=== PATIENT | male | born 1980 | race American Indian/Alaskan Native ===

== ENCOUNTER 2017-11-11 09:37 | Inpatient (IN) | payer OTHER, MEDICAID ==
--- NOTE | 2017-11-11 09:53 | C.PDOC ---
History Of Present Illness [id number] male presents to ED stating "I don't want to live, I wish I was never born." Denies any physical complaints. Time Seen by Provider: 11/11/17 09:38 Chief Complaint (Nursing): Psychiatric Evaluation History Per: Patient History/Exam Limitations: no limitations Onset/Duration Of Symptoms: Hrs Current Symptoms Are (Timing): Still Present Suicide/Self Injury Attempted (Context): None Modifying Factor(s): None Associated Symptoms: Suicidal Thoughts. denies: Suicidal Plan Involuntary Hold By: None Recent travel outside of the [place]: No Past Medical History Reviewed: Historical Data, Nursing Documentation, Vital Signs Vital Signs: Last Vital Signs Temp 98.0 F 11/11/17 09:52 Pulse 79 11/11/17 09:52 Resp 17 11/11/17 09:52 BP 113/74 11/11/17 09:52 Pulse Ox 99 11/11/17 09:57 - Medical History PMH: Bipolar Disorder, Depression, Schizophrenia - [facility] GROUP PSYCHOTHERAPY (09/24/17) INDIVIDUAL PSYCHOTHERAPY, BEHAVIORAL (09/11/17) INDIVIDUAL PSYCHOTHERAPY, SUPPORTIVE (09/24/17) Family History: States: Unknown Family Hx - Social History Hx Alcohol Use: No Hx Substance Use: No - Immunization History Hx Tetanus Toxoid Vaccination: No Hx Influenza Vaccination: Yes Hx Pneumococcal Vaccination: No Review Of Systems Constitutional: Negative for: Fever, Chills Gastrointestinal: Negative for: Nausea, Vomiting, Diarrhea Skin: Negative for: Rash Neurological: Negative for: Weakness, Numbness Psych: Positive for: Suicidal ideation Physical Exam - Physical Exam Appears: Non-toxic, No Acute Distress Skin: Normal Color, Warm, Dry, No Rash Head: Atraumatic, Normacephalic Eye(s): bilateral: Normal Inspection, PERRL, EOMI Oral Mucosa: Moist Throat: No Erythema, No Exudate Neck: Normal ROM, Supple Chest: Symmetrical, No Tenderness Cardiovascular: Rhythm Regular Respiratory: Normal Breath Sounds, No Rales, No Rhonchi, No Wheezing Gastrointestinal/Abdominal: Soft, No Tenderness Extremity: Normal ROM, No Swelling Neurological/Psych: Oriented x3, Normal Speech, Normal Cognition Gait: Steady ED Course And Treatment - Laboratory Results Result Diagrams: 11/11/17 09:53 11/11/17 09:53 O2 Sat by Pulse Oximetry: 99 (RA) Pulse Ox Interpretation: Normal Medical Decision Making Medical Decision Making: Ordered Blood work and Urinalysis. The patient is medically cleared by me for psych admission. Case was discussed with Dr. Becker who agrees to admit the patient to psych. 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 - Scribe Statement The provider has reviewed the documentation as recorded by the Scribdelia Jett All medical record entries made by the Barbaraibdelia were at my direction and personally dictated by me. I have reviewed the chart and agree that the record accurately reflects my personal performance of the history, physical exam, medical decision making, and the department course for this patient. I have also personally directed, reviewed, and agree with the discharge instructions and disposition.
[2017-11-11 10:09] LABS: BASO % 0.3 % (0.0-2.0); EOS % 0.3 % (0.0-4.0); HEMOGLOBIN 13.6 g/dL (12.0-18.0); LYMPH # 1.2 K/uL (1.0-4.3); LYMPH % 12.8 % (20.0-40.0); MEAN CELL VOLUME 77.5 fL (80.0-94.0); MEAN CORPUSCULAR HEMOGLOBIN 24.8 pg (27.0-31.0); MEAN PLATELET VOLUME 9.9 fL (7.2-11.7); MONO # 0.5 K/uL (0.0-0.8); MONO % 5.2 % (0.0-10.0); NEUT # 7.9 K/uL (1.8-7.0); NEUT % 81.4 % (50.0-75.0); RBC 5.5 Mil/uL (4.40-5.90); RED CELL DISTRIBUTION WIDTH 14.6 % (11.5-14.5); WHITE BLOOD COUNT 9.7 K/uL (4.8-10.8)
[2017-11-11 10:14] LABS: URINE AMORPHOUS SEDIMENT MODERATE /ul (<OCC); URINE BACTERIA RARE (<OCC); URINE BILIRUBIN NEGATIVE (NEGATIVE); URINE BLOOD NEGATIVE (NEGATIVE); URINE CLARITY Hazy (Clear); URINE COLOR Yellow (YELLOW); URINE GLUCOSE (UA) NORMAL (Normal); URINE LEUKOCYTE ESTERASE NEG Leu/uL (Negative); URINE PROTEIN NEGATIVE (NEGATIVE); URINE UROBILINOGEN NORMAL mg/dL (0.2-1.0)
[2017-11-11 10:18] LABS: ACETAMINOPHEN < 10.0 ug/mL (10.0-30.0); ALB/GLOB RATIO 1.1 (1.0-2.1); ALBUMIN 4.5 g/dL (3.5-5.0); ALT/SGPT 14 U/L (21-72); AST/SGOT 23 U/L (17-59); BLOOD UREA NITROGEN 11 mg/dL (9-20); CALCIUM 9.8 mg/dl (8.6-10.4); GFR AFRICAN-AMERICAN > 60; GFR NON-AFRICAN AMERICAN > 60; SALICYLATE < 1.0 mg/dL 1
[2017-11-11 10:44] LABS: BARBITURATES, UR NEGATIVE (NEGATIVE); BENZODIAZEPINES, UR NEGATIVE (NEGATIVE); OPIATES, UR NEGATIVE (NEGATIVE); PHENCYCLIDINE, UR NEGATIVE (NEGATIVE)
--- NOTE | 2017-11-11 12:13 | PCM.BM ---
<Leela Monzon - Last Filed: 11/11/17 12:12> Treatment Plan Problems - Problems identified on initial assessmt Depression Date Initiated: 11/11/17 Time Initiated: 12:12 Assessment reference: NA Status: Active Suicidal Ideation Date Initiated: 11/11/17 Time Initiated: 12:12 Assessment reference: NA Status: Active Treatment assets and liabiliti Patient Assests: cooperative, motivated, resourceful, self-reliant, ADL independent, physically healthy, negotiates basic needs, cognitively intact Patient Liabilities: live alone (Lives with family), substance abuse (None), medical problems (None), imparied memory (Wear glasses) - Milieu Protocol Maintain good personal hygiene: daily Encourage regular showers, daily Remind patient to perform daily oral care, daily Assist patient to perform ADL's (Self) Conduct patient checks and document Observation sheet: Q15 minutes (Safety) Maintain personal safety: every shift Educate patient to report safety concerns to staff, every shift Monitor environment for contraband/sharps Medication safety: Monitor for expected outcome, potential side effects: every shift, Assess barriers to learning: every shift, Assess readiness for medication education: every shift <Paty Telles - Last Filed: 11/15/17 11:21> - Diagnosis (1) Schizoaffective disorder Status: Acute Interventions: 11/15/17 11:21 * Assess/adjust medications daily and /or as needed * See patient on an individual basis 7x/week to assess status of hallucinations * Discuss risks, benefits, side effects and alternatives of medications * <Sun Zhu - Last Filed: 11/16/17 15:10> Family Contact Family involvement: Patient does not wish Family/SO involvement Family contact: Patient declines to allow family contact at present Discharge/Continuing Care - Education Needs Education Needs: Patient Medication, Patient Diagnosis/Disease Process, Patient Placement options, Patient Community resources - Discharge Discharge Criteria: Free of Suicidal thoughts, Normal sleep pattern, Ability to care for self, Reduction of target symptoms Discharge to:: Home - Treatment Team Participation Discussed with Family/SO: No Was Patient/Family/SO present at Treatment Team Meeting: Yes
--- NOTE | 2017-11-11 23:37 | PCM.PSYCH ---
Initial Psychiatric Evaluation - Initial Psychiatric Evaluation Type of Admission: Voluntary Legal Status: Capacity Chief Complaint (in patient's own words): I am depressed and I need treatment. History of Present Illness and Precipitating Events: Patient is a 37 years old, single, unemployed, on Social Security, male with history of depression for last 7 years, noncompliant with treatment for last week was admitted due to worsening of depression and suicidal ideations with some plan. Patient reported worsening depression for decreased sleep, appetite, no change in appetite and no weight change. Started having suicidal ideations with some plan. Patient had suicidal ideations this morning without any plan but feels safe in the hospital. Has 5 previous suicidal attempts. His last suicidal attempt was 2 weeks ago by drowning himself and bathroom tub and attempted to get electric shock while in the bathtub. Patient was admitted to [facility] (Formerly [facility] Patient feels hopelessness and helplessness. History of 7-8 inpatient psychiatric admissions in the past. Patient believes that someone is after him, someone is watching him and that makes him nervous. Denied any manic symptoms. Denied any substance use including heroin, cocaine, and cannabis. He has history of alcohol use in the past. Last drink was 10 years ago. Denied smoking cigarettes. Patient was born in [place] has high school graduation. Not working for last 10 years. He is on Social Security disability. Never and has no children. He lives with family. His height is 5 feet 8 inches and weight is 180 pounds. Current Medications: Active Medications Generic Name Dose Route Start Last Admin Trade Name Freq PRN Reason Stop Dose Admin Haloperidol 5 mg 11/11/17 18:30 11/11/17 19:08 Haldol PO 5 mg BID GEOVANY Administration Hydroxyzine HCl 25 mg 11/11/17 18:31 11/11/17 21:18 Atarax PO 25 mg Q6 PRN Administration Anxiety Ibuprofen 400 mg 11/11/17 18:31 Motrin Tab PO Q6 PRN Pain, moderate (4-7) [place] Carbonate 300 mg 11/12/17 10:00 [place] Carbonate 300mg PO TID GEOVANY Pneumococcal Polyvalent Vaccine 0.5 ml 11/14/17 10:00 Pneumovax 23 Vaccine IM 11/14/17 10:01 .ONCE ONE Trazodone HCl 50 mg 11/11/17 22:00 11/11/17 21:18 Desyrel PO 50 mg HS GEOVANY Administration Venlafaxine HCl 37.5 mg 11/12/17 10:00 Effexor Xr PO DAILY GEOVANY Past Psychiatric History - Past Psychiatric History Previous Treatment History: Inpatient History of Abuse: None reported History of ETOH/Drug Use: See HPI History of Family Illness: None reported Pertinent Medical Hx (Current Medical&Sleep Prob, Allergies): Allergies Allergy/AdvReac Type Severity Reaction Status Date / Time No Known Allergies Allergy Verified 11/11/17 09:51 Multivitamin [Multi-Vitamin Daily] 1 tab PO DAILY 09/11/17 Venlafaxine [Effexor] 37.5 mg PO BID 30 Days #60 tab 09/28/17 lamoTRIgine [Lamictal] 25 mg PO BID 30 Days #60 tab 09/28/17 Review of Systems - Psychiatric Psychiatric: As Per HPI, Depression, Paranoia, Suicidal Ideation Mental Status Examination - Personal Presentation Personal Presentation: Looks stated age - Affect Affect: Depressed - Motor Activity Motor Activity: Calm - Reliability in Providing Information Reliability in Providing Information: Fair - Speech Speech: Organized - Mood Mood: Depressed - Formal Thought Process Formal Thought Process: No Impairment - Hallucinations/Delusions Hallucinations: Other (None reported) Delusions: Other - Obsessions/Compulsions Obsessions: None Compulsions: None - Cognitive Functions Orientation: Person, Place, Situation, Time Sensorium: Alert Attention/Concentration: Attentive Abstract Thinking: [place] Estimate of Intelligence: Average Judgement: Intact, as evidence by: Insight regarding need for hospitalization Memory: Recent intact, as evidence by: 3/3 object recall, Remote intact, as evidenced by: Abilit to recall sig. 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 Supportive therapy. We will start lithium, Haldol and venlafaxine. Other as needed medications. Projected ELOS: 8-10 days - Smoking Cessation Smoking Cessation Initiated: No Reason for not providing: Patient does not smoke cigarette
[2017-11-12] MEDS: Venlafaxine 37.5 mg ER Cap PO SCH (09:50)
--- NOTE | 2017-11-12 15:36 | PCM.PYCHPN ---
Psychiatric Progress Note - Psychiatric Progress Note Patient seen today, length of contact: 15 minutes Patient Chief Complaint: I am feeling little better. Problems Identified/Issues Discussed: Patient seen, chart reviewed, case discussed with the staff. Issues related to illness and treatment were discussed with the patient. Reported compliant with treatment with no adverse effects. Feeling little better. Calm and cooperative. Awake alert oriented 3. Aftercare discussed with the patient. Denied any delusions, auditory or visual hallucinations, suicidal ideations or homicidal ideations at the time of evaluation. Medical Problems: None reported Diagnostic Results: Reviewed DSM 5 Symptoms Update: Some improvement with treatment. Medication Change: No Medical Record Reviewed: Yes Mental Status Examination - Cognitive Function Orientation: Person, Place, Situation, Time Memory: Intact Attention: WNL Concentration: WNL Association: WN Fund of Knowledge: [facility] Decription of patient's judgement and insights: Fair - Mood Mood: Depressed - Affect Affect: Depressed - Speech Speech: Appropriate - Formal Thought Process Formal Thought Process: No Impairment Psychotic Thoughts and Behaviors: None - Suicidal Ideation Suicidal Ideation: No - Homicidal Ideation Homicidal Ideation: No Goal/Treatment Plan - Goal/Treatment Plan Need for Continued Stay: Remain at risks for inpatient hospitalization, Discharge may exacerbated symptoms, Severe functional impairment Progress Toward Problem(s) and Goals/Treatment Plan: Patient education. Supportive therapy. Continue treatment as before. Patient will get some help from director of social media marketing for follow-up care. Estimated Date of D/C: 11/23/17 - Smoking Cessation Smoking Cessation Initiated: No Reason for not providing: Patient does not smoke cigarette
[2017-11-13] MEDS: Venlafaxine 37.5 mg ER Cap PO SCH (09:57)
--- NOTE | 2017-11-13 10:56 | PCM.PYCHPN ---
Psychiatric Progress Note - Psychiatric Progress Note Patient seen today, length of contact: 15 minutes Patient Chief Complaint: I am feeling sebastian.' Problems Identified/Issues Discussed: Patient seen and evaluated, chart reviewed and discussed with the nurse. Patient remained disorganized and internally preoccupied. Patient remained isolated, confined and withdrawn. He reports some improvement in the voices. Patient still appears paranoid and delusional. He reports depressed mood but denies any feelings of hopelessness and helplessness. He is taking medication and denies any side effects. Symptoms are improving but she needs more time for stabilization. Supportive therapy and psychoeducation were given. Medication Change: Yes Medical Record Reviewed: Yes Mental Status Examination - Cognitive Function Orientation: Person, Place, Situation, Time Memory: Intact Attention: WNL Concentration: Poor Association: Loose Fund of Knowledge: WNL - Mood Mood: Depressed, Anxious - Affect Affect: Constricted - Speech Speech: Soft - Formal Thought Process Formal Thought Process: Hallucinations, Delusions, Paranoia, Loosening of associations - Suicidal Ideation Suicidal Ideation: No - Homicidal Ideation Homicidal Ideation: No Goal/Treatment Plan - Goal/Treatment Plan Need for Continued Stay: Severe depression anxiety, Severe functional impairment Progress Toward Problem(s) and Goals/Treatment Plan: Schizoaffective Disorder -CBT -Individual and group therapy -Psychoeducation -[place] 300 mg TID -Effexor 37.5 mg daily -Haldol 5 mg by mouth twice a day -Cogentin 1 mg by mouth twice a day -Trazodone 50 mg by mouth daily at bedtime -Obtain collateral history -Disposition planning -Medicine consult - Smoking Cessation Smoking Cessation Initiated: No
[2017-11-14] MEDS: Venlafaxine 37.5 mg ER Cap PO SCH (09:37)
[2017-11-14] MEDS ORDERED: Pneumococcal 23-Valent Vaccine IM ONE (10:00)
--- NOTE | 2017-11-14 12:18 | PCM.PYCHPN ---
Psychiatric Progress Note - Psychiatric Progress Note Patient seen today, length of contact: 15 minutes Patient Chief Complaint: I am not feeling good.' Problems Identified/Issues Discussed: Patient seen and evaluated, chart reviewed and discussed with the nurse. Patient remained disorganized and internally preoccupied. Patient remained isolated, confined and withdrawn. He reports some improvement in the voices. Patient still appears paranoid and delusional. He reports depressed mood but denies any feelings of hopelessness and helplessness. He is taking medication and denies any side effects. Symptoms are improving but she needs more time for stabilization. Supportive therapy and psychoeducation were given. Medication Change: Yes Medical Record Reviewed: Yes Mental Status Examination - Cognitive Function Orientation: Person, Place, Situation, Time Memory: Intact Attention: WNL Concentration: Poor Association: Loose Fund of Knowledge: Poor - Mood Mood: Depressed, Anxious - Affect Affect: Constricted - Speech Speech: Soft - Formal Thought Process Formal Thought Process: Hallucinations, Delusions, Paranoia, Loosening of associations - Suicidal Ideation Suicidal Ideation: No - Homicidal Ideation Homicidal Ideation: No Goal/Treatment Plan - Goal/Treatment Plan Need for Continued Stay: Severe depression anxiety, Failed transitioning, Severe functional impairment Progress Toward Problem(s) and Goals/Treatment Plan: Schizoaffective Disorder -CBT -Individual and group therapy -Psychoeducation -[place] 300 mg TID -Effexor 37.5 mg daily -Haldol 5 mg by mouth twice a day -Cogentin 1 mg by mouth twice a day -Trazodone 50 mg by mouth daily at bedtime -Obtain collateral history -Disposition planning -Medicine consult
[2017-11-15] MEDS: Venlafaxine 37.5 mg ER Cap PO SCH (10:34)
[2017-11-16] MEDS: Venlafaxine 37.5 mg ER Cap PO SCH (09:10)
--- NOTE | 2017-11-16 13:47 | PCM.PYCHPN ---
Psychiatric Progress Note - Psychiatric Progress Note Patient seen today, length of contact: 15 minutes Patient Chief Complaint: I am feeling sebastian.' Problems Identified/Issues Discussed: Patient seen and evaluated, chart reviewed and discussed with the nurse. Today patient appears more organized and less internally preoccupied. He remained remained isolated, confined and withdrawn. He reports some improvement in the voices. Patient still appears paranoid and delusional. He reports depressed mood but denies any feelings of hopelessness and helplessness. He is taking medication and denies any side effects. Symptoms are improving but she needs more time for stabilization. Supportive therapy and psychoeducation were given. Medication Change: Yes Medical Record Reviewed: Yes Mental Status Examination - Cognitive Function Orientation: Person, Place, Situation, Time Memory: Intact Attention: WNL Concentration: Poor Association: Loose Fund of Knowledge: WNL - Mood Mood: Depressed, Anxious - Affect Affect: Constricted - Speech Speech: Soft - Formal Thought Process Formal Thought Process: Hallucinations, Delusions, Paranoia, Loosening of associations - Suicidal Ideation Suicidal Ideation: No - Homicidal Ideation Homicidal Ideation: No Goal/Treatment Plan - Goal/Treatment Plan Need for Continued Stay: Severe depression anxiety, Severe functional impairment Progress Toward Problem(s) and Goals/Treatment Plan: Schizoaffective Disorder -CBT -Individual and group therapy -Psychoeducation -[place] 300 mg TID -Effexor 37.5 mg daily -Haldol 10 mg by mouth twice a day -Cogentin 1 mg by mouth twice a day -Trazodone 50 mg by mouth daily at bedtime -Obtain collateral history -Disposition planning -Medicine consult
--- NOTE | 2017-11-16 13:48 | PCM.PYCHPN ---
Psychiatric Progress Note - Psychiatric Progress Note Patient seen today, length of contact: 15 minutes Patient Chief Complaint: I am feeling sebastian.' Problems Identified/Issues Discussed: Patient seen and evaluated, chart reviewed and discussed with the nurse. Today patient appears more organized and less internally preoccupied. He remained remained isolated, confined and withdrawn. He reports some improvement in the voices. Patient still appears paranoid and delusional. He reports depressed mood but denies any feelings of hopelessness and helplessness. He is taking medication and denies any side effects. Symptoms are improving but she needs more time for stabilization. Supportive therapy and psychoeducation were given. Medication Change: Yes (Increase Effexor) Medical Record Reviewed: Yes Mental Status Examination - Cognitive Function Orientation: Person, Place, Situation, Time Memory: Intact Attention: WNL Concentration: Poor Association: Loose Fund of Knowledge: WNL - Mood Mood: Depressed, Anxious - Affect Affect: Constricted - Speech Speech: Soft - Formal Thought Process Formal Thought Process: Hallucinations, Delusions, Paranoia, Loosening of associations - Suicidal Ideation Suicidal Ideation: No - Homicidal Ideation Homicidal Ideation: No Goal/Treatment Plan - Goal/Treatment Plan Need for Continued Stay: Severe depression anxiety, Severe functional impairment Progress Toward Problem(s) and Goals/Treatment Plan: Schizoaffective Disorder -CBT -Individual and group therapy -Psychoeducation -[place] 300 mg TID -Effexor 37.5 mg daily -Haldol 10 mg by mouth twice a day -Cogentin 1 mg by mouth twice a day -Trazodone 50 mg by mouth daily at bedtime -Obtain collateral history -Disposition planning -Medicine consult
[2017-11-16 18:11] LABS: FREE T4 0.93 ng/dL (0.78-2.19)
[2017-11-17] MEDS: Venlafaxine 150 mg ER Cap PO SCH (09:43)
[2017-11-18 06:29] VITALS: O2SAT 98
[2017-11-18] MEDS: Venlafaxine 150 mg ER Cap PO SCH (10:25)
--- NOTE | 2017-11-18 13:19 | PCM.PYCHPN ---
Psychiatric Progress Note - Psychiatric Progress Note Patient seen today, length of contact: 16 min Patient Chief Complaint: "Better" Problems Identified/Issues Discussed: The pt is seen, chart reviewed, case discussed with staff. The pt is compliant with medications and reports no side-effects. Symptoms are improving but needs more time to stabilize. After care discussed, support and psychoeducation given. He has exophthalmus but TFts are WNL Medication Change: No Medical Record Reviewed: Yes Mental Status Examination - Cognitive Function Orientation: Person, Place, Situation, Time Memory: Intact Attention: WNL Concentration: Poor Association: Loose Fund of Knowledge: WNL - Mood Mood: Depressed, Anxious - Affect Affect: Constricted - Speech Speech: Soft - Formal Thought Process Formal Thought Process: Delusions, Paranoia - Suicidal Ideation Suicidal Ideation: No - Homicidal Ideation Homicidal Ideation: No Goal/Treatment Plan - Goal/Treatment Plan Need for Continued Stay: Severe depression anxiety, Discharge may exacerbated symptoms, Severe functional impairment Progress Toward Problem(s) and Goals/Treatment Plan: Continue medications Support and psychoeducation daily Attend groups and activities daily After care planning by SACHA
[2017-11-19] MEDS: Venlafaxine 150 mg ER Cap PO SCH (10:24)
--- NOTE | 2017-11-20 10:02 | PCM.PYCHPN ---
Psychiatric Progress Note - Psychiatric Progress Note Patient seen today, length of contact: 15 minutes Patient Chief Complaint: I am feeling sebastian.' Problems Identified/Issues Discussed: Patient seen and evaluated, chart reviewed and discussed with the nurse. Today patient appears more organized and less internally preoccupied. He remained remained isolated, confined and withdrawn. He reports some improvement in the voices. Patient still appears paranoid and delusional. He reports depressed mood but denies any feelings of hopelessness and helplessness. He is taking medication and denies any side effects. Symptoms are improving but she needs more time for stabilization. Supportive therapy and psychoeducation were given. Medication Change: No Medical Record Reviewed: Yes Mental Status Examination - Cognitive Function Orientation: Person, Place, Situation, Time Memory: Intact Attention: WNL Concentration: WNL Association: WNL Fund of Knowledge: WNL - Mood Mood: Depressed - Affect Affect: Depressed - Speech Speech: Appropriate - Formal Thought Process Formal Thought Process: No Impairment - Suicidal Ideation Suicidal Ideation: No - Homicidal Ideation Homicidal Ideation: No Goal/Treatment Plan - Goal/Treatment Plan Need for Continued Stay: Remain at risks for inpatient hospitalization, Discharge may exacerbated symptoms, Severe functional impairment Progress Toward Problem(s) and Goals/Treatment Plan: Schizoaffective Disorder -CBT -Individual and group therapy -Psychoeducation -[place] 300 mg TID -Effexor 37.5 mg daily -Haldol 10 mg by mouth twice a day -Cogentin 1 mg by mouth twice a day -Trazodone 50 mg by mouth daily at bedtime -Obtain collateral history -Disposition planning -Medicine consult Estimated Date of D/C: 11/23/17
[2017-11-20] MEDS: Venlafaxine 150 mg ER Cap PO SCH (10:12)
--- NOTE | 2017-11-20 13:27 | PCM.PYCHPN ---
Psychiatric Progress Note - Psychiatric Progress Note Patient seen today, length of contact: 16 min Patient Chief Complaint: "Better" Problems Identified/Issues Discussed: The pt is seen, chart reviewed, case discussed with staff. Support given, psychoed used No new symptoms reported, improving slowly and needs more time No SEs from medications, risks discussed. After care discussed Medication Change: No Medical Record Reviewed: Yes Mental Status Examination - Cognitive Function Orientation: Person, Place, Situation, Time Memory: Intact Attention: WNL Concentration: Poor Association: Loose Fund of Knowledge: WNL - Mood Mood: Depressed, Anxious - Affect Affect: Constricted - Speech Speech: Soft - Formal Thought Process Formal Thought Process: Delusions, Paranoia - Suicidal Ideation Suicidal Ideation: No - Homicidal Ideation Homicidal Ideation: No Goal/Treatment Plan - Goal/Treatment Plan Need for Continued Stay: Severe depression anxiety, Discharge may exacerbated symptoms, Severe functional impairment Progress Toward Problem(s) and Goals/Treatment Plan: Continue medications Support and psychoeducation daily Attend groups and activities daily After care planning by SACHA Estimated Date of D/C: 11/23/17
[2017-11-21] MEDS: Venlafaxine 150 mg ER Cap PO SCH (10:01)
--- NOTE | 2017-11-21 10:35 | PCM.PYCHPN ---
Psychiatric Progress Note - Psychiatric Progress Note Patient seen today, length of contact: 16 min Patient Chief Complaint: I am feeling sebastian.' Problems Identified/Issues Discussed: Patient seen and evaluated, chart reviewed and discussed with the nurse. Today patient appears more organized and less internally preoccupied. He remained remained isolated, confined and withdrawn. He reports some improvement in the voices. Patient still appears paranoid and delusional. He reports depressed mood but denies any feelings of hopelessness and helplessness. He is taking medication and denies any side effects. Symptoms are improving but she needs more time for stabilization. Supportive therapy and psychoeducation were given. Medication Change: No Medical Record Reviewed: Yes Mental Status Examination - Cognitive Function Orientation: Person, Place, Situation, Time Memory: Intact Attention: WNL Concentration: Poor Association: Loose Fund of Knowledge: WNL - Mood Mood: Depressed, Anxious - Affect Affect: Constricted - Speech Speech: Soft - Formal Thought Process Formal Thought Process: Delusions, Paranoia - Suicidal Ideation Suicidal Ideation: No - Homicidal Ideation Homicidal Ideation: No Goal/Treatment Plan - Goal/Treatment Plan Need for Continued Stay: Severe depression anxiety, Discharge may exacerbated symptoms, Severe functional impairment Progress Toward Problem(s) and Goals/Treatment Plan: Schizoaffective Disorder -CBT -Individual and group therapy -Psychoeducation -[place] 300 mg TID -Effexor 37.5 mg daily -Haldol 10 mg by mouth twice a day -Cogentin 1 mg by mouth twice a day -Trazodone 50 mg by mouth daily at bedtime -Obtain collateral history -Disposition planning -Medicine consult Estimated Date of D/C: 11/23/17
[2017-11-22] MEDS: Venlafaxine 150 mg ER Cap PO SCH (10:14)
--- NOTE | 2017-11-22 14:50 | PCM.BM ---
<Sun Zhu - Last Filed: 11/22/17 14:49> Treatment Plan Problems - Problems identified on initial assessmt Depression Date Initiated: 11/11/17 Time Initiated: 12:12 Assessment reference: NA Status: Active Suicidal Ideation Date Initiated: 11/11/17 Time Initiated: 12:12 Assessment reference: NA Status: Active Treatment assets and liabiliti Patient Assests: cooperative, motivated, resourceful, self-reliant, ADL independent, physically healthy, negotiates basic needs, cognitively intact Patient Liabilities: live alone (Lives with family), substance abuse (None), medical problems (None), imparied memory (Wear glasses) - Milieu Protocol Maintain good personal hygiene: daily Encourage regular showers, daily Remind patient to perform daily oral care, daily Assist patient to perform ADL's (Self) Conduct patient checks and document Observation sheet: Q15 minutes (Safety) Maintain personal safety: every shift Educate patient to report safety concerns to staff, every shift Monitor environment for contraband/sharps Medication safety: Monitor for expected outcome, potential side effects: every shift, Assess barriers to learning: every shift, Assess readiness for medication education: every shift Milieu Narrative: Schizoaffective Disorder -CBT -Individual and group therapy -Psychoeducation -[place] 300 mg TID -Effexor 37.5 mg daily -Haldol 10 mg by mouth twice a day -Cogentin 1 mg by mouth twice a day -Trazodone 50 mg by mouth daily at bedtime -Obtain collateral history -Disposition planning -Medicine consult Family Contact Family involvement: Patient does not wish Family/SO involvement Family contact: Patient declines to allow family contact at present Discharge/Continuing Care - Education Needs Education Needs: Patient Medication, Patient Diagnosis/Disease Process, Patient Placement options, Patient Community resources - Discharge Discharge Criteria: Free of Suicidal thoughts, Normal sleep pattern, Ability to care for self, Reduction of target symptoms Discharge to:: Home - Treatment Team Participation Patient/Family/SO Statement: Schizoaffective Disorder -CBT -Individual and group therapy -Psychoeducation -[place] 300 mg TID -Effexor 37.5 mg daily -Haldol 10 mg by mouth twice a day -Cogentin 1 mg by mouth twice a day -Trazodone 50 mg by mouth daily at bedtime -Obtain collateral history -Disposition planning -Medicine consult Discussed with Family/SO: No Was Patient/Family/SO present at Treatment Team Meeting: Yes Treatment Plan Review - Problem Depression Time Initiated: 12:12 Suicidal Ideation Time Initiated: 12:12 - Discharge / Continuing Care Discharge to:: Home Behavioral Health Services: Intensive Outpatient Health Needs: Follow up care/test, Medications/Rx <Paty Telles - Last Filed: 11/23/17 10:10> - Diagnosis (1) Schizoaffective disorder Status: Acute Interventions: 11/23/17 10:10 * Assess/adjust medications daily and /or as needed * See patient on an individual basis 7x/week to assess status of hallucinations * Discuss risks, benefits, side effects and alternatives of medications *
[2017-11-23 06:28] VITALS: BP 92/63; PULSE 80; RESP 20; TEMP 98.4
--- NOTE | 2017-11-23 09:52 | PCM.PYCHPN ---
Psychiatric Progress Note - Psychiatric Progress Note Patient seen today, length of contact: 16 min Patient Chief Complaint: I am feeling sebastian.' Problems Identified/Issues Discussed: Patient seen and evaluated, chart reviewed and discussed with the nurse. Today patient appears more organized and he denies any voices or having hallucinations. Reports improvement in his mood and reports improvement in the withdrawal symptoms. l He is taking medication and denies any side effects. Symptoms are improving but she needs more time for stabilization. Supportive therapy and psychoeducation were given. Medication Change: No Medical Record Reviewed: Yes Mental Status Examination - Cognitive Function Orientation: Person, Place, Situation, Time Memory: Intact Attention: WNL Concentration: WNL Association: WNL Fund of Knowledge: WNL - Mood Mood: Depressed, Anxious - Affect Affect: Constricted - Speech Speech: Soft - Formal Thought Process Formal Thought Process: No Impairment - Suicidal Ideation Suicidal Ideation: No - Homicidal Ideation Homicidal Ideation: No Goal/Treatment Plan - Goal/Treatment Plan Need for Continued Stay: Severe depression anxiety, Discharge may exacerbated symptoms, Severe functional impairment Progress Toward Problem(s) and Goals/Treatment Plan: Schizoaffective Disorder -CBT -Individual and group therapy -Psychoeducation -[place] 300 mg TID -Effexor 37.5 mg daily -Haldol 10 mg by mouth twice a day -Cogentin 1 mg by mouth twice a day -Trazodone 50 mg by mouth daily at bedtime -Obtain collateral history -Disposition planning -Medicine consult Estimated Date of D/C: 11/23/17 - Smoking Cessation Smoking Cessation Initiated: No
--- NOTE | 2017-11-23 09:55 | PCM.PYCHDC ---
Mental Status Examination - Mental Status Examination Orientation: Person, Place, Situation, Time Memory: Intact Mood: Neutral Affect: Constricted Speech: Soft Attention: WNL Concentration: WNL Association: WNL Fund of Knowledge: WNL Formal Thought Process: No Impairment Description of patient's judgement and insight: good, fair Psychotic Thoughts and Behaviors: Denies any AVH Suicidal Ideation: No Current Homicidal Ideation?: No Discharge Summary - Discharge Note Reason for Hospitalization: Patient is a 37 years old, single, unemployed, on Social Security, male with history of depression for last 7 years, noncompliant with treatment for last week was admitted due to worsening of depression and suicidal ideations with some plan. Patient reported worsening depression for decreased sleep, appetite, no change in appetite and no weight change. Started having suicidal ideations with some plan. Patient had suicidal ideations this morning without any plan but feels safe in the hospital. Has 5 previous suicidal attempts. His last suicidal attempt was 2 weeks ago by drowning himself and bathroom tub and attempted to get electric shock while in the bathtub. Patient was admitted to [facility]. Patient feels hopelessness and helplessness. History of 7-8 inpatient psychiatric admissions in the past. Patient believes that someone is after him, someone is watching him and that makes him nervous. Denied any manic symptoms. Denied any substance use including heroin, cocaine, and cannabis. He has history of alcohol use in the past. Last drink was 10 years ago. Denied smoking cigarettes. Patient was born in [place] has high school graduation. Not working for last 10 years. He is on Social Security disability. Never and has no children. He lives with family. His height is 5 feet 8 inches and weight is 180 pounds. Consultations:: List each consultation separately and include: 1. Reason for request. 2. Findings. 3. Follow-up Summary of Hospital Course include:: 1. Description of specific treatment plan utilized for patients during their course of treatmen. 2. Summarize the time- course for resolution of acute symptoms and/or regressed behaviors. 3. Describe issues identified and worked on during hospitalization. 4. Describe medication utilized. 5. Describe medical problems identified and treated. 6. Reassessment of suicide risk Summary of Hospital Course: During the course of his stay, patient (pt) started progressively improving and he no longer remained irritable, depressed, and suicidal. His mood was improved and he started attending groups and meetings and started socializing. Patient denied any feelings of hopelessness, helplessness, and worthlessness, denied any problem with the sleep or appetite, denied suicidal ideation or homicidal ideation. Pt denied any auditory or visual hallucinations. Some changes were made in his current medications and patient was discharged on following medications. He tolerated these medications very well and denied any side effects. CBT and SD were used. Patient was discharged to the [facility]. - Diagnosis (1) Schizoaffective disorder Status: Acute - Final Diagnosis (DSM 5) Condition upon Discharge: GOOD DSM 5: Schizoaffective Disorder Disposition: HOME/ ROUTINE Follow-up Treatment Plan: Education: Pt was educated and counseled about the risks and benefits of taking and not taking medications. Pt was educated and counseled about the risks of drinking and abusing drugs. Pt was educated and counseled to go to the ER or call 911 if pt develop suicidal ideation or homicidal ideation, worsening of symptoms or severe side effects of the meds. Prescriptions/Medication Reconciliation: Benztropine [Cogentin] 1 mg PO BID #60 tab Haloperidol [Haldol] 10 mg PO BID #60 tab [place] Two Carbonate [[place] Two Carbonate 300MG] 300 mg PO TID #90 cap traZODone [Desyrel] 50 mg PO HS PRN #30 tab PRN Reason: Insomnia Venlafaxine [Effexor XR] 150 mg PO DAILY #30 cer - Smoking Cessation Smoking Cessation Medication prescribed: No - Antipsychotic Medications Pt discharged on 2 or more routine antipsychotic medications: No
[2017-11-23] MEDS: Venlafaxine 150 mg ER Cap PO SCH (10:57)
== END 2017-11-23 11:40 | disposition home or self-care (01) | DRG 885 ==
LOC: C.ER 09:37 → C.5E 11:13
PROC: GZHZZZZ Group Psychotherapy (ICD-10-PCS; principal; 2017-11-11)
DX: F33.3 Major depressive disorder, recurrent, severe with psychotic symptoms (principal); R45.851 Suicidal ideations; H05.20 Unspecified exophthalmos; Z91.19 Patient's noncompliance with other medical treatment and regimen

== ENCOUNTER 2018-05-15 14:31 | Inpatient (IN) | payer OTHER ==
[2018-05-15 14:31] VITALS: BMI 25.8
[2018-05-15 15:55] LABS: BASO % 0.3 % (0.0-2.0); EOS # 0.3 K/uL (0.0-0.7); EOS % 3.5 % (0.0-4.0); HEMOGLOBIN 13.9 g/dL (12.0-18.0); LYMPH # 1.9 K/uL (1.0-4.3); LYMPH % 20.3 % (20.0-40.0); MEAN CELL VOLUME 78.5 fL (80.0-94.0); MEAN CORPUSCULAR HEMOGLOBIN 25.4 pg (27.0-31.0); MEAN CORPUSCULAR HGB CONC 32.4 g/dL (33.0-37.0); MEAN PLATELET VOLUME 10.6 fL (7.2-11.7); MONO # 0.9 K/uL (0.0-0.8); MONO % 10.2 % (0.0-10.0); NEUT % 65.7 % (50.0-75.0); RBC 5.47 Mil/uL (4.40-5.90); RED CELL DISTRIBUTION WIDTH 14.7 % (11.5-14.5); WHITE BLOOD COUNT 9.1 K/uL (4.8-10.8)
[2018-05-15 15:57] LABS: URINE BILIRUBIN NEGATIVE (NEGATIVE); URINE BLOOD NEGATIVE (NEGATIVE); URINE CLARITY Clear (Clear); URINE COLOR Straw (YELLOW); URINE GLUCOSE (UA) NORMAL (Normal); URINE LEUKOCYTE ESTERASE NEG Leu/uL (Negative); URINE PROTEIN NEGATIVE (NEGATIVE); URINE UROBILINOGEN NORMAL mg/dL (0.2-1.0)
[2018-05-15 16:13] LABS: ALB/GLOB RATIO 1.3 (1.0-2.1); ALBUMIN 4.3 g/dL (3.5-5.0); ALT/SGPT 11 U/L (21-72); AST/SGOT 18 U/L (17-59); BLOOD UREA NITROGEN 8 mg/dL (9-20); CALCIUM 9.4 mg/dl (8.6-10.4); GFR NON-AFRICAN AMERICAN > 60
[2018-05-15 16:18] LABS: BARBITURATES, UR NEGATIVE (NEGATIVE); BENZODIAZEPINES, UR NEGATIVE (NEGATIVE); OPIATES, UR NEGATIVE (NEGATIVE); PHENCYCLIDINE, UR NEGATIVE (NEGATIVE)
--- NOTE | 2018-05-15 17:15 | C.PDOC ---
History Of Present Illness 37-year-old male, PMHx includes depression, presents to the emergency department with complaints of feeling suicidal. Patient states he was seen at [facility] yesterday, and was told to follow up in a few days, but he became progressively suicidal. Patient has a plan to cut himself with a knife. Denies HI Time Seen by Provider: 05/15/18 14:42 Chief Complaint (Nursing): Psychiatric Evaluation History Per: Patient History/Exam Limitations: no limitations Past Medical History Reviewed: Historical Data, Nursing Documentation, Vital Signs Vital Signs: Last Vital Signs Temp 99 F 05/15/18 14:34 Pulse 99 H 05/15/18 14:34 Resp 18 05/15/18 14:34 BP 120/69 05/15/18 14:34 Pulse Ox 97 05/15/18 14:34 - Medical History PMH: Anxiety, Bipolar Disorder, Depression, Schizophrenia Denies: Diabetes, Hepatitis, HIV, HTN, Chronic Kidney Disease, Seizures, Sexually Transmitted Disease - [employer] Procedures GROUP PSYCHOTHERAPY (05/07/18) INDIVIDUAL PSYCHOTHERAPY, BEHAVIORAL (09/11/17) INDIVIDUAL PSYCHOTHERAPY, COGNITIVE-BEHAVIORAL (05/07/18) INDIVIDUAL PSYCHOTHERAPY, SUPPORTIVE (05/07/18) Family History: States: No Known Family Hx - Social History Hx Alcohol Use: No Hx Substance Use: No - Immunization History Hx Tetanus Toxoid Vaccination: No Hx Influenza Vaccination: Yes Hx Pneumococcal Vaccination: No Review Of Systems Psych: Positive for: Suicidal ideation. Negative for: Psychosis Physical Exam - Physical Exam Appears: Non-toxic, No Acute Distress Skin: Warm, Dry, No Rash Head: Atraumatic Eye(s): bilateral: Normal Inspection Nose: Normal Oral Mucosa: Moist Lips: Normal Appearing Neck: Normal ROM Cardiovascular: Rhythm Regular, No Murmur Respiratory: Normal Breath Sounds, No Accessory Muscle Use Gastrointestinal/Abdominal: Soft, No Tenderness Back: Normal Inspection Extremity: Normal ROM, No Deformity Neurological/Psych: Oriented x3, Normal Speech ED Course And Treatment - Laboratory Results Result Diagrams: 05/15/18 15:50 05/15/18 15:50 O2 Sat by Pulse Oximetry: 97 Pulse Ox Interpretation: Normal (RA) Progress Note: Patient is medically cleared, he was evaluated by Crisis and is accepted to psyciatry floor by . Disposition - Disposition Disposition: HOSPITALIZED Disposition Time: 17:40 Condition: STABLE Forms: [facility] (Korean) - Clinical Impression Clinical Impression: Suicidal ideation, Depression - Scribe Statement The provider has reviewed the documentation as recorded by the Scribe (Virgilio gong) All medical record entries made by the Scribe were at my direction and personally dictated by me. I have reviewed the chart and agree that the record accurately reflects my personal performance of the history, physical exam, m edical decision making, and the department course for this patient. I have also personally directed, reviewed, and agree with the discharge instructions and disposition. Decision To Admit - Pt Status Changed To: Hospital Disposition Of: Inpatient - Admit Certification Admit to Inpatient:: After my assessment, the patient will require hospitalization for at least two midnights. This is because of the severity of symptoms shown, intensity of services needed, and/or the medical risk in this patient being treated as an outpatient. - InPatient: Physician Admission Certification: I certify that this patient requires 2 or more midnights of care for the following reason:: needs more than 2 days of hospitalization - . Bed Request Type: Psychiatry Admitting Physician: Paty Telles Patient Diagnosis: Suicidal ideation, Depression
--- NOTE | 2018-05-15 21:50 | PCM.BM ---
<Curtis Carroll - Last Filed: 05/15/18 21:48> Treatment Plan Problems - Problems identified on initial assessmt Depression Date Initiated: 05/15/18 Time Initiated: 18:35 Assessment reference: NA Status: Active Suicidal Ideation Date Initiated: 05/15/18 Time Initiated: 18:35 Assessment reference: NA Status: Monitor Treatment assets and liabiliti Patient Assests: adapts well, cooperative, motivated, ADL independent, physically healthy, good support system, negotiates basic needs, cognitively intact, good interpersonal skills Patient Liabilities: poor support system - Milieu Protocol Maintain good personal hygiene: daily Encourage regular showers, daily Remind patient to perform daily oral care, every shift Assist patient to perform ADL's Conduct patient checks and document Observation sheet: Q15 minutes Maintain personal safety: every shift Educate patient to report safety concerns to staff, every shift Monitor environment for contraband/sharps Medication safety: Monitor for expected outcome, potential side effects: every shift, Assess barriers to learning: every shift, Assess readiness for medication education: every shift <Paty Telles - Last Filed: 05/16/18 11:00> - Diagnosis (1) Schizoaffective disorder Status: Acute Interventions: 05/16/18 11:00 * Assess/adjust medications daily and /or as needed * See patient on an individual basis 7x/week to assess status of hallucinations * Discuss risks, benefits, side effects and alternatives of medications * <Sun Zhu - Last Filed: 05/16/18 13:13> Family Contact Family involvement: Family/SO is involved Family contact: Family contacted unit to give information - Goals for Treatment Patient goals for treatment: "I do not know where I want to go for treatment." Discharge/Continuing Care - Education Needs Education Needs: Patient Medication, Patient Diagnosis/Disease Process, Patient Coping Skills, Patient Placement options, Patient Community resources - Discharge Discharge Criteria: Free of Suicidal thoughts, Normal sleep pattern, Ability to care for self, Reduction of target symptoms Discharge to:: Home, With Family - Treatment Team Participation Discussed with Family/SO: No Was Patient/Family/SO present at Treatment Team Meeting: Yes
--- NOTE | 2018-05-16 11:19 | PCM.PSYCH ---
Initial Psychiatric Evaluation - Initial Psychiatric Evaluation Type of Admission: Voluntary Legal Status: Capacity Chief Complaint (in patient's own words): I was feeling increasingly irritable and suicidal. History of Present Illness and Precipitating Events: Pt is a 37 year old male who is single and without children, on SSD and was formerly in the [place] until 2001, who lives with his parents and brother in [place], presented to the [facility] with depressed mood and suicidal ideations and homicidal ideations. Pt states he was feeling suicidal and wanted to use a gun but was not able to get access to one. He states he is suicidal because he has no car, no girlfriend, or no job. He attempted suicide 5-10 times in the past by overdosing on psychotropic medications and pain killers. He has had 10 hospitalizations for a psychiatric condition in the past. He was admitted to the psychiatric floor of [facility] once before. Pt has poor appetite and sleep. He reports racing thoughts, poor focus and poor concentration while reading or in day to day activities. He is feeling guilty about his fight with his father. He is a little hopeless, helpless and unmotivated. He denies use of cigarettes, alcohol, or other substances including heroin or cocaine. His plan after his stay in this hospital is to see a therapist or be sent to the [facility] in [place]. He denies any auditory or visual hallucinations or any psychotic symptoms. However he appeared somewhat paranoid and delusional. Past medical history: Denies Allergies: Denies Surgical history: Denies Legal history: Court date soon for fight with father Psychiatric history: General anxiety d/o, depressive d/o unspecified Family psychiatric history: Denies Current Medications: Active Medications Generic Name Dose Route Start Last Admin Trade Name Freq PRN Reason Stop Dose Admin Aripiprazole 10 mg 05/16/18 10:00 05/16/18 09:25 Abilify PO 10 mg DAILY GEOVANY Administration Diphenhydramine HCl 25 mg 05/15/18 21:08 Benadryl PO Q6 PRN Anxiety Influenza Virus Vaccine 60 mcg 05/19/18 10:00 Fluzone Quad [id number] IM 05/19/18 10:01 .ONCE ONE Pneumococcal Polyvalent Vaccine 0.5 ml 05/17/18 10:00 Pneumovax 23 Vaccine IM 05/17/18 10:01 .ONCE ONE Trazodone HCl 50 mg 05/15/18 22:00 05/15/18 21:28 Desyrel PO 50 mg HS GEOVANY Administration Past Psychiatric History - Past Psychiatric History Previous Treatment History: Inpatient Pertinent Medical Hx (Current Medical&Sleep Prob, Allergies): Allergies Allergy/AdvReac Type Severity Reaction Status Date / Time No Known Allergies Allergy Verified 04/24/18 23:28 ARIPiprazole [Abilify] 20 mg PO DAILY 30 Days #60 tab 05/03/18 Divalproex [Depakote ER(ONCE DAILY)] 1,000 mg PO HS 30 Days #60 ter 05/03/18 Review of Systems - Review of Systems All systems: reviewed and no additional remarkable complaints except - Psychiatric Psychiatric: Anxiety, Homicidal Ideation, Irritability, Mood Swings, Paranoia, Suicidal Ideation Mental Status Examination - Personal Presentation Personal Presentation: Looks stated age - Affect Affect: Broad - Motor Activity Motor Activity: Psychomotor Agitation - Reliability in Providing Information Reliability in Providing Information: Poor, due to alteration in thoughts, Poor, due to altered mood - Speech Speech: Organized - Mood Mood: Depressed, Anxious - Formal Thought Process Formal Thought Process: Delusions, Paranoia - Obsessions/Compulsions Obsessions: No Compulsions: No - Cognitive Functions Orientation: Person, Place, Situation, Time Sensorium: Alert Attention/Concentration: Attentive Abstract Thinking: [place] Estimate of Intelligence: Below average Judgement: Imparied, as evidence by: Poor judgement, Imparied, as evidence by: Lack of insight into illness - Risk Risk: Suicidal, Homicidal, Diminished functioning - Strength & Assets Inventory Strength & Assets Inventory: Family support DSM 5 DX - DSM 5 DSM 5 Diagnosis: Schizoaffective disorder bipolar type - Recommended/Plan of Treatment Treatment Recommendations and Plan of Treatment: Schizoaffective disorder bipolar type CBT Psychoeducation Supportive therapy, group therapy, individual therapy Trazodone 100 mg by mouth daily at bedtime Hydroxyzine 25 mg by mouth every 6 hours when necessary Ativan 1 mg po q6hr prn Abilify 10 mg PO QHS Depakote 250 mg PO BID - Smoking Cessation Smoking Cessation Initiated: Yes
[2018-05-16] MEDS: Divalproex 250 mg DR Tab PO SCH (18:46)
[2018-05-17] MEDS: Divalproex 250 mg DR Tab PO SCH ×2 (09:49→18:11)
[2018-05-17] MEDS ORDERED: Pneumococcal 23-Valent Vaccine IM ONE (10:00)
--- NOTE | 2018-05-17 22:25 | PCM.PYCHPN ---
Psychiatric Progress Note - Psychiatric Progress Note Patient seen today, length of contact: 15 min Patient Chief Complaint: I was feeling increasingly irritable and depressed.' Problems Identified/Issues Discussed: Patient seen and evaluated, chart reviewed and discussed with the nurse. Pt reports depressed mood, and reports feelings of hopelessness and helplessness. Pt remained disorganized and internally preoccupied. He remained isolated and withdrawn, and confined to his room. He denies any auditory hallucinations, visual hallucinations, or any paranoia. Patient is compliant with medications and denies any side effects. Symptoms are improving but pt needs more time to stabilize. Support and psychoeducation given. Medication Change: Yes Medical Record Reviewed: Yes Mental Status Examination - Cognitive Function Orientation: Person, Place, Situation, Time Memory: Intact Attention: WNL Concentration: Poor Association: Loose Fund of Knowledge: Poor - Mood Mood: Depressed, Anxious - Affect Affect: Broad - Speech Speech: Soft - Formal Thought Process Formal Thought Process: Delusions, Paranoia, Loosening of associations - Suicidal Ideation Suicidal Ideation: No - Homicidal Ideation Homicidal Ideation: Yes Goal/Treatment Plan - Goal/Treatment Plan Need for Continued Stay: Severe depression anxiety, Severe functional impairment Progress Toward Problem(s) and Goals/Treatment Plan: Schizoaffective disorder bipolar type CBT Psychoeducation Supportive therapy, group therapy, individual therapy Trazodone 100 mg by mouth daily at bedtime Hydroxyzine 25 mg by mouth every 6 hours when necessary Ativan 1 mg po q6hr prn Abilify 10 mg PO QHS Depakote 250 mg PO BID - Smoking Cessation Smoking Cessation Initiated: No
[2018-05-18] MEDS: Divalproex 500 mg DR Tab PO SCH ×2 (09:28→17:17)
[2018-05-19] MEDS ORDERED: Influenza Vaccine 60 MCG/0.5 ML SYR (3 yr & up) IM ONE (10:00)
[2018-05-19] MEDS: Divalproex 500 mg DR Tab PO SCH ×2 (10:06→17:11)
[2018-05-20 07:27] VITALS: O2SAT 96
[2018-05-20] MEDS: Divalproex 500 mg DR Tab PO SCH ×2 (09:49→16:59)
[2018-05-21] MEDS: Divalproex 500 mg DR Tab PO SCH ×2 (09:11→17:19)
--- NOTE | 2018-05-21 11:59 | PCM.PYCHPN ---
Psychiatric Progress Note - Psychiatric Progress Note Patient seen today, length of contact: 15 min Patient Chief Complaint: I m feeling little better.' Problems Identified/Issues Discussed: Patient seen and evaluated, chart reviewed and discussed with the nurse. Pt reports some improvement in his mood, irritability and agitation. Pt appears more organized than before but remained internally preoccupied. He remained isolated and withdrawn, and confined to his room. He denies any auditory hallucinations, or visual hallucinations, but still appears paranoid and delusional. Patient is compliant with medications and denies any side effects. Symptoms are improving but pt needs more time to stabilize. Support and psychoeducation given. Medication Change: Yes Medical Record Reviewed: Yes Mental Status Examination - Cognitive Function Orientation: Person, Place, Situation, Time Memory: Intact Attention: WNL Concentration: Poor Association: Loose Fund of Knowledge: Poor - Mood Mood: Depressed, Anxious - Affect Affect: Broad - Speech Speech: Soft - Formal Thought Process Formal Thought Process: Delusions, Paranoia, Loosening of associations - Suicidal Ideation Suicidal Ideation: No - Homicidal Ideation Homicidal Ideation: No Goal/Treatment Plan - Goal/Treatment Plan Need for Continued Stay: Severe depression anxiety, Severe functional impairment Progress Toward Problem(s) and Goals/Treatment Plan: Schizoaffective disorder bipolar type CBT Psychoeducation Supportive therapy, group therapy, individual therapy Trazodone 100 mg by mouth daily at bedtime Hydroxyzine 25 mg by mouth every 6 hours when necessary Ativan 1 mg po q6hr prn Abilify 10 mg PO QHS Depakote 500 mg PO BID Seroquel 100 mg PO QHS
[2018-05-22] MEDS: Divalproex 500 mg DR Tab PO SCH ×2 (09:47→17:25)
[2018-05-23 06:23] VITALS: BP 96/61; PULSE 68; RESP 20; TEMP 97.6
[2018-05-23] MEDS: Divalproex 500 mg DR Tab PO SCH (10:15)
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
== END 2018-05-23 12:57 | disposition home or self-care (01) | DRG 885 ==
LOC: C.ER 14:31 → C.5E 18:02
PROVIDERS: ADMIT Psychiatry & Neurology Psychiatry; ATTEND Psychiatry & Neurology Psychiatry
PROC: GZ3ZZZZ Medication Management (ICD-10-PCS; principal; 2018-05-15)
PROC: GZHZZZZ Group Psychotherapy (ICD-10-PCS; 2018-05-15)
PROC: GZ56ZZZ Individual Psychotherapy, Supportive (ICD-10-PCS; 2018-05-15)
DX: F25.0 Schizoaffective disorder, bipolar type (principal); R45.851 Suicidal ideations; F41.1 Generalized anxiety disorder; R45.850 Homicidal ideations; Z79.899 Other long term (current) drug therapy

== ENCOUNTER 2018-06-05 16:57 | Inpatient (IN) | payer OTHER ==
[2018-06-05 16:57] VITALS: BMI 25.8
[2018-06-05 18:09] LABS: BASO % 0.4 % (0.0-2.0); EOS # 0.1 K/uL (0.0-0.7); EOS % 1.7 % (0.0-4.0); HEMOGLOBIN 14.4 g/dL (12.0-18.0); LYMPH # 1.6 K/uL (1.0-4.3); MEAN CELL VOLUME 77.6 fL (80.0-94.0); MEAN CORPUSCULAR HEMOGLOBIN 25.3 pg (27.0-31.0); MEAN CORPUSCULAR HGB CONC 32.6 g/dL (33.0-37.0); MEAN PLATELET VOLUME 9.7 fL (7.2-11.7); MONO # 0.7 K/uL (0.0-0.8); MONO % 8.9 % (0.0-10.0); NEUT # 5.3 K/uL (1.8-7.0); NRBC % 0.1 % (0.0-2.0); RBC 5.69 Mil/uL (4.40-5.90); RED CELL DISTRIBUTION WIDTH 14.7 % (11.5-14.5); WHITE BLOOD COUNT 7.7 K/uL (4.8-10.8)
--- NOTE | 2018-06-05 18:11 | C.PDOC ---
History Of Present Illness 37 y/o male with history of Depression and Schizoaffective disorder presents to ED with c/o feeling depressed and suicidal ideation for "few days". Patient states he is suppose to be on medication but "lost motivation" and stopped ta paulo medication for 1 week. Patient denies auditory or visual hallucinations, drug or alcohol abuse, HI or any other complaints at this time. <Natalia Craven - Last Filed: 06/05/18 18:26> History Per: Patient History/Exam Limitations: no limitations Onset/Duration Of Symptoms: Days Current Symptoms Are (Timing): Still Present Suicide/Self Injury Attempted (Context): None Associated Symptoms: Depression, Suicidal Thoughts <Natalia Craven - Last Filed: 06/05/18 18:26> <Elio Vazquez - Last Filed: 06/05/18 20:11> Time Seen by Provider: 06/05/18 17:35 Chief Complaint (Nursing): Psychiatric Evaluation Past Medical History Reviewed: Historical Data, Nursing Documentation, Vital Signs Vital Signs: Last Vital Signs Temp 98.9 F 06/05/18 17:19 Pulse 79 06/05/18 17:19 Resp 18 06/05/18 17:19 BP 96/64 L 06/05/18 17:19 Pulse Ox 99 06/05/18 17:19 - Medical History PMH: Anxiety, Bipolar Disorder, Depression, Schizophrenia Surgical History: No Surg Hx - [facility] GROUP PSYCHOTHERAPY (05/15/18) INDIVIDUAL PSYCHOTHERAPY, BEHAVIORAL (09/11/17) INDIVIDUAL PSYCHOTHERAPY, COGNITIVE-BEHAVIORAL (05/07/18) INDIVIDUAL PSYCHOTHERAPY, SUPPORTIVE (05/15/18) MEDICATION MANAGEMENT (05/15/18) Family History: States: No Known Family Hx - Social History Hx Alcohol Use: No Hx Substance Use: No - Immunization History Hx Tetanus Toxoid Vaccination: No Hx Influenza Vaccination: Yes Hx Pneumococcal Vaccination: No <Natalia Craven - Last Filed: 06/05/18 18:26> Vital Signs: Last Vital Signs Temp 98.9 F 06/05/18 17:19 Pulse 79 06/05/18 17:19 Resp 18 06/05/18 17:19 BP 96/64 L 06/05/18 17:19 Pulse Ox 99 06/05/18 18:27 - [facility] GROUP PSYCHOTHERAPY (05/15/18) INDIVIDUAL PSYCHOTHERAPY, BEHAVIORAL (09/11/17) INDIVIDUAL PSYCHOTHERAPY, COGNITIVE-BEHAVIORAL (05/07/18) INDIVIDUAL PSYCHOTHERAPY, SUPPORTIVE (05/15/18) MEDICATION MANAGEMENT (05/15/18) <Elio Vazquez Last Filed: 06/05/18 20:11> Review Of Systems Except As Marked, All Systems Reviewed And Found Negative. Constitutional: Negative for: Fever, Chills Cardiovascular: Negative for: Chest Pain Gastrointestinal: Negative for: Nausea, Vomiting Psych: Positive for: Depression, Suicidal ideation. Negative for: Anxiety, Withdrawal <Natalia Craven - Last Filed: 06/05/18 18:26> Physical Exam - Physical Exam Appears: Non-toxic, No Acute Distress Skin: Warm, Dry, No Rash Head: Atraumatic, Normacephalic Eye(s): bilateral: Normal Inspection, EOMI Nose: Normal Oral Mucosa: Moist Neck: Normal ROM, Supple Chest: Symmetrical Cardiovascular: Rhythm Regular Respiratory: Normal Breath Sounds, No Rales, No Rhonchi, No Wheezing Gastrointestinal/Abdominal: Soft, No Tenderness, No Guarding, No Rebound Extremity: Normal ROM, Capillary Refill (<2 seconds) Neurological/Psych: Oriented x3, Normal Speech, Normal Cognition <Natalia Craven - Last Filed: 06/05/18 18:26> ED Course And Treatment - Laboratory Results Result Diagrams: 06/05/18 17:56 06/05/18 17:56 O2 Sat by Pulse Oximetry: 99 (RA) Pulse Ox Interpretation: Normal Progress Note: Drug screen, UA, Blood work. Case endorsed to Dr Vazquez pending labs, crisis evaluation, and re-evaluation. 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 - Scribe Statement The provider has reviewed the documentation as recorded by the Scribe Jose Hermosillo All medical record entries made by the Scribe were at my direction and personally dictated by me. I have reviewed the chart and agree that the record accurately reflects my personal performance of the history, physical exam, medical decision making, and the department course for this patient. I have also personally directed, reviewed, and agree with the discharge instructions and disposition. <Natalia Craven - Last Filed: 06/05/18 18:26>
[2018-06-05 18:17] LABS: ALB/GLOB RATIO 1.3 (1.0-2.1); ALBUMIN 4.3 g/dL (3.5-5.0); ALT/SGPT 14 U/L (21-72); AST/SGOT 16 U/L (17-59); BLOOD UREA NITROGEN 11 mg/dL (9-20); CALCIUM 9.5 mg/dl (8.6-10.4); GFR NON-AFRICAN AMERICAN > 60
[2018-06-05 18:23] LABS: URINE BILIRUBIN NEGATIVE (NEGATIVE); URINE BLOOD NEGATIVE (NEGATIVE); URINE CLARITY Clear (Clear); URINE COLOR Yellow (YELLOW); URINE GLUCOSE (UA) NORMAL (Normal); URINE LEUKOCYTE ESTERASE NEG Leu/uL (Negative); URINE PROTEIN NEGATIVE (NEGATIVE)
[2018-06-05 18:50] LABS: BARBITURATES, UR NEGATIVE (NEGATIVE); BENZODIAZEPINES, UR NEGATIVE (NEGATIVE); OPIATES, UR NEGATIVE (NEGATIVE); PHENCYCLIDINE, UR NEGATIVE (NEGATIVE)
--- NOTE | 2018-06-05 23:31 | PCM.BM ---
<Curtis Carroll - Last Filed: 06/05/18 23:30> Treatment Plan Problems - Problems identified on initial assessmt Depression Date Initiated: 06/05/18 Time Initiated: 20:45 Assessment reference: NA Treatment assets and liabiliti Patient Assests: adapts well, cooperative, motivated, ADL independent, physically healthy, good support system, negotiates basic needs, cognitively intact, good interpersonal skills Patient Liabilities: financial problems, poor support system - Milieu Protocol Maintain good personal hygiene: daily Encourage regular showers, daily Remind patient to perform daily oral care, every shift Assist patient to perform ADL's Conduct patient checks and document Observation sheet: Q15 minutes Maintain personal safety: every shift Educate patient to report safety concerns to staff, every shift Monitor environment for contraband/sharps Medication safety: Monitor for expected outcome, potential side effects: every shift, Assess barriers to learning: every shift, Assess readiness for medication education: every shift <Yordan Becker - Last Filed: 06/06/18 10:04> - Diagnosis (1) Major depressive disorder, recurrent, severe with psychotic features Status: Acute Interventions: 06/06/18 10:04 * Assess/adjust medications daily and /or as needed * See patient on an individual basis 7x/week to assess status of hallucinations * Discuss risks, benefits, side effects and alternatives of medications <Cecilia Avalos - Last Filed: 06/06/18 13:38> Family Contact Family involvement: Family/SO is involved Family contact: Patient declines to allow family contact at present - Goals for Treatment Patient goals for treatment: "I want to go to an outpatient program." Discharge/Continuing Care - Education Needs Education Needs: Patient Medication, Patient Coping Skills - Discharge Discharge Criteria: Tolerates medication w/o severe side effects, No longer exhibiting s/s of withdrawal, Reduction of target symptoms Discharge to:: Home - Treatment Team Participation Discussed with Family/SO: No Was Patient/Family/SO present at Treatment Team Meeting: Yes
[2018-06-06] MEDS: Divalproex 500 mg DR Tab PO SCH ×2 (10:59→17:47)
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
[2018-06-07] MEDS ORDERED: Pneumococcal 23-Valent Vaccine IM ONE (10:00)
[2018-06-07] MEDS: Divalproex 500 mg DR Tab PO SCH ×2 (10:10→18:26)
--- NOTE | 2018-06-07 23:22 | PCM.PYCHPN ---
Psychiatric Progress Note - Psychiatric Progress Note Patient seen today, length of contact: 15 minutes Patient Chief Complaint: I and still depressed and suicidal. Feeling safe in the hospital. Problems Identified/Issues Discussed: Patient seen, chart reviewed, case discussed with the staff. Issues related to illness and treatment were discussed with the patient and staff. Reported compliant with treatment with no adverse effects. Tolerating treatment very well. Patient reported still feeling depressed and suicidal. Feeling safe in the hospital. Awake, alert and oriented 3. Calm and more cooperative. Mood reported as depressed. Affect appropriate. Treatment discussed with the patient. Needs more time for stabilization. Aftercare discussed with the patient. Denied any delusions, auditory or visual hallucinations, suicidal ideations or homicidal ideations at the time of evaluation. Medical Problems: None reported Diagnostic Results: Reviewed. DSM 5 Symptoms Update: Some improvement with the treatment Medication Change: No Medical Record Reviewed: Yes Mental Status Examination - Cognitive Function Orientation: Person, Place, Situation, Time Memory: Intact Attention: WNL Concentration: WNL Association: [facility] Fund of Knowledge: [facility] Decription of patient's judgement and insights: Fair - Mood Mood: Depressed - Affect Affect: Depressed - Speech Speech: Appropriate - Formal Thought Process Formal Thought Process: No Impairment Psychotic Thoughts and Behaviors: None - Suicidal Ideation Suicidal Ideation: No - Homicidal Ideation Homicidal Ideation: No Goal/Treatment Plan - Goal/Treatment Plan Need for Continued Stay: Remain at risks for inpatient hospitalization, Discharge may exacerbated symptoms, Severe functional impairment Progress Toward Problem(s) and Goals/Treatment Plan: Patient education. Supportive therapy. Continue treatment as before. Estimated Date of D/C: 06/14/18 - Smoking Cessation Smoking Cessation Initiated: No Reason for not providing: Patient doesn't smoke cigarettes
[2018-06-08] MEDS: Divalproex 500 mg DR Tab PO SCH ×2 (09:40→17:08)
--- NOTE | 2018-06-08 17:16 | PCM.PYCHPN ---
Psychiatric Progress Note - Psychiatric Progress Note Patient seen today, length of contact: 15 minutes Patient Chief Complaint: I'm feeling much better Problems Identified/Issues Discussed: Patient seen, chart reviewed, case discussed with the staff. Issues related to illness and treatment were discussed with the patient and staff. Reported compliant with treatment with no adverse effects. Tolerating treatment very well. Patient reported feeling much better. Awake, alert and oriented 3. Calm and more cooperative. Mood reported as okay. Affect appropriate. Patient signed a 48 hour notice for discharge ending tomorrow. Treatment discussed with the patient. Needs more time for stabilization. Aftercare discussed with the patient. Denied any delusions, auditory or visual hallucinations, suicidal ideations or homicidal ideations at the time of evaluation. Medical Problems: None reported Diagnostic Results: Reviewed. DSM 5 Symptoms Update: Some improvement with treatment. Medication Change: No Medical Record Reviewed: Yes Mental Status Examination - Cognitive Function Orientation: Person, Place, Situation, Time Memory: Intact Attention: WNL Concentration: WNL Association: [facility] Fund of Knowledge: [facility] Decription of patient's judgement and insights: Fair - Mood Mood: Depressed (Much less than before.) - Affect Affect: Other (Appropriate) - Speech Speech: Appropriate - Formal Thought Process Formal Thought Process: No Impairment Psychotic Thoughts and Behaviors: None - Suicidal Ideation Suicidal Ideation: No - Homicidal Ideation Homicidal Ideation: No Goal/Treatment Plan - Goal/Treatment Plan Need for Continued Stay: Remain at risks for inpatient hospitalization, Discharge may exacerbated symptoms, Severe functional impairment Progress Toward Problem(s) and Goals/Treatment Plan: Patient education. Supportive therapy. Continue treatment as before. Estimated Date of D/C: 06/14/18 - Smoking Cessation Smoking Cessation Initiated: No Reason for not providing: Patient doesn't smoke cigarettes
[2018-06-09] MEDS: Divalproex 500 mg DR Tab PO SCH ×2 (09:37→17:52)
--- NOTE | 2018-06-09 20:40 | PCM.PYCHPN ---
Psychiatric Progress Note - Psychiatric Progress Note Patient seen today, length of contact: 15 minutes Patient Chief Complaint: I'm feeling depressed. Problems Identified/Issues Discussed: Patient seen, chart reviewed, case discussed with the staff. Issues related to illness and treatment were discussed with the patient and staff. Reported compliant with treatment with no adverse effects. Tolerating treatment very well. Patient reported feeling depressed. We'll start sertraline 50 mg daily. Initially patient signed a 48 hours notice for discharge which patient to get back now patient wants to stay to complete his treatment. Awake, alert and oriented 3. Calm and more cooperative. Mood reported as depressed. Affect appropriate. Treatment discussed with the patient. Needs more time for stabilization. Aftercare discussed with the patient. Denied any delusions, auditory or visual hallucinations, suicidal ideations or homicidal ideations at the time of evaluation. Medical Problems: None reported Diagnostic Results: Reviewed. DSM 5 Symptoms Update: Some improvement with treatment Medication Change: Yes (Will start sertraline 50 mg daily) Medical Record Reviewed: Yes Mental Status Examination - Cognitive Function Orientation: Person, Place, Situation, Time Memory: Intact Attention: WNL Concentration: WNL Association: WN Fund of Knowledge: [facility] Decription of patient's judgement and insights: Fair - Mood Mood: Depressed - Affect Affect: Other (Appropriate) - Speech Speech: Appropriate - Formal Thought Process Formal Thought Process: No Impairment Psychotic Thoughts and Behaviors: None - Suicidal Ideation Suicidal Ideation: No - Homicidal Ideation Homicidal Ideation: No Goal/Treatment Plan - Goal/Treatment Plan Need for Continued Stay: Remain at risks for inpatient hospitalization, Discharge may exacerbated symptoms, Severe functional impairment Progress Toward Problem(s) and Goals/Treatment Plan: Patient education. Supportive therapy. We'll start sertraline 50 mg daily. Continue rest of the treatment as before. Estimated Date of D/C: 06/14/18 - Smoking Cessation Smoking Cessation Initiated: No
[2018-06-10 06:42] VITALS: O2SAT 99
[2018-06-10] MEDS: Divalproex 500 mg DR Tab PO SCH ×2 (09:25→17:40)
--- NOTE | 2018-06-10 16:15 | PCM.PYCHPN ---
Psychiatric Progress Note - Psychiatric Progress Note Patient seen today, length of contact: 15 minutes Patient Chief Complaint: I'm still feeling depressed. Problems Identified/Issues Discussed: Patient seen, chart reviewed, case discussed with the staff. Issues related to illness and treatment were discussed with the patient and staff. Reported compliant with treatment with no adverse effects. Tolerating treatment very well. Patient reported still feeling depressed. Awake, alert and oriented 3. Calm and more cooperative. Mood reported as depressed. Affect appropriate. Treatment discussed with the patient. Needs more time for stabilization. Aftercare discussed with the patient. Denied any delusions, auditory or visual hallucinations, suicidal ideations or homicidal ideations at the time of evaluation. Medical Problems: None reported Diagnostic Results: Reviewed. Medication Change: No Medical Record Reviewed: Yes Mental Status Examination - Cognitive Function Orientation: Person, Place, Situation, Time Memory: Intact Attention: WNL Concentration: WNL Association: WNL Fund of Knowledge: [facility] Decription of patient's judgement and insights: Fair - Mood Mood: Depressed - Affect Affect: Other (Appropriate) - Speech Speech: Appropriate - Formal Thought Process Formal Thought Process: No Impairment Psychotic Thoughts and Behaviors: None - Suicidal Ideation Suicidal Ideation: No - Homicidal Ideation Homicidal Ideation: No Goal/Treatment Plan - Goal/Treatment Plan Need for Continued Stay: Remain at risks for inpatient hospitalization, Discharge may exacerbated symptoms, Severe functional impairment Progress Toward Problem(s) and Goals/Treatment Plan: Patient education. Supportive therapy. Continue treatment as before. Estimated Date of D/C: 06/14/18 - Smoking Cessation Smoking Cessation Initiated: No
[2018-06-11] MEDS: Divalproex 500 mg DR Tab PO SCH ×2 (09:19→17:21)
--- NOTE | 2018-06-11 21:14 | PCM.PYCHPN ---
Psychiatric Progress Note - Psychiatric Progress Note Patient seen today, length of contact: 15 minutes Medication Change: No Medical Record Reviewed: Yes Mental Status Examination - Cognitive Function Orientation: Person, Place, Situation, Time Memory: Intact Attention: WNL Concentration: WNL Association: WNL Fund of Knowledge: WNL - Mood Mood: Depressed - Affect Affect: Other (Appropriate) - Speech Speech: Appropriate - Formal Thought Process Formal Thought Process: No Impairment - Suicidal Ideation Suicidal Ideation: No - Homicidal Ideation Homicidal Ideation: No Goal/Treatment Plan - Goal/Treatment Plan Need for Continued Stay: Remain at risks for inpatient hospitalization, Discharge may exacerbated symptoms, Severe functional impairment Progress Toward Problem(s) and Goals/Treatment Plan: Major depressive disorder recurrent severe without psychotic features Patient education. Supportive therapy. Depakote, Abilify and trazodone. Patient understood and agreed. Estimated Date of D/C: 06/14/18
[2018-06-12] MEDS: Divalproex 500 mg DR Tab PO SCH ×2 (09:51→17:56)
[2018-06-13] MEDS: Divalproex 500 mg DR Tab PO SCH ×2 (09:39→17:51)
[2018-06-14] MEDS: Divalproex 500 mg DR Tab PO SCH ×2 (09:11→17:09)
[2018-06-15] MEDS: Divalproex 500 mg DR Tab PO SCH ×2 (09:21→17:30)
--- NOTE | 2018-06-15 10:39 | PCM.PYCHPN ---
Psychiatric Progress Note - Psychiatric Progress Note Patient seen today, length of contact: 15 minutes Patient Chief Complaint: I ma not feeling good.' Medication Change: No Medical Record Reviewed: Yes Mental Status Examination - Cognitive Function Orientation: Person, Place, Situation, Time Memory: Intact Attention: WNL Concentration: WNL Association: WNL Fund of Knowledge: WNL - Mood Mood: Depressed - Affect Affect: Constricted - Speech Speech: Appropriate - Formal Thought Process Formal Thought Process: Paranoia, Loosening of associations - Suicidal Ideation Suicidal Ideation: No - Homicidal Ideation Homicidal Ideation: No Goal/Treatment Plan - Goal/Treatment Plan Need for Continued Stay: Remain at risks for inpatient hospitalization, Dis charge may exacerbated symptoms, Severe functional impairment Progress Toward Problem(s) and Goals/Treatment Plan: Major depressive disorder recurrent severe without psychotic features Patient education. Supportive therapy. Depakote, Abilify and trazodone. Patient understood and agreed. Estimated Date of D/C: 06/18/18
[2018-06-16] MEDS: Divalproex 500 mg DR Tab PO SCH ×2 (10:50→17:04)
--- NOTE | 2018-06-16 13:08 | PCM.PYCHPN ---
Psychiatric Progress Note - Psychiatric Progress Note Patient seen today, length of contact: 15 minutes Patient Chief Complaint: I'm still feeling depressed. Problems Identified/Issues Discussed: Patient seen, chart reviewed, case discussed with the staff. Issues related to illness and treatment were discussed with the patient and staff. Reported compliant with treatment with no adverse effects. Tolerating treatment very well. Patient reported still feeling depressed. Awake, alert and oriented 3. Calm and more cooperative. Mood reported as depressed. Affect appropriate. Treatment discussed with the patient. Needs more time for stabilization. Aftercare discussed with the patient. Denied any delusions, auditory or visual hallucinations, suicidal ideations or homicidal ideations at the time of evaluation. Medical Problems: None reported Diagnostic Results: Reviewed. Medication Change: Yes (We will increase the dose of sertraline to 150 mg) Medical Record Reviewed: Yes Mental Status Examination - Cognitive Function Orientation: Person, Place, Situation, Time Memory: Intact Attention: WNL Concentration: WNL Association: WNL Fund of Knowledge: WNL - Mood Mood: Depressed - Affect Affect: Constricted - Speech Speech: Appropriate - Formal Thought Process Formal Thought Process: Paranoia, Loosening of associations - Suicidal Ideation Suicidal Ideation: No - Homicidal Ideation Homicidal Ideation: No Goal/Treatment Plan - Goal/Treatment Plan Need for Continued Stay: Remain at risks for inpatient hospitalization, Discharge may exacerbated symptoms, Severe functional impairment Progress Toward Problem(s) and Goals/Treatment Plan: Patient education. Supportive therapy. Continue treatment as before. Estimated Date of D/C: 06/18/18
[2018-06-17] MEDS: Divalproex 500 mg DR Tab PO SCH ×2 (10:05→17:12)
[2018-06-18 06:31] VITALS: RESP 18; TEMP 97.4
[2018-06-18] MEDS: Divalproex 500 mg DR Tab PO SCH (10:11)
[2018-06-18 10:46] VITALS: BP 105/76; PULSE 76
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
== END 2018-06-18 02:30 | disposition home or self-care (01) | DRG 885 ==
LOC: C.ER 16:57 → C.5E 20:12
PROC: GZ56ZZZ Individual Psychotherapy, Supportive (ICD-10-PCS; principal; 2018-06-05)
DX: F33.3 Major depressive disorder, recurrent, severe with psychotic symptoms (principal); R45.851 Suicidal ideations; Z91.19 Patient's noncompliance with other medical treatment and regimen